=== PATIENT | male | born 1960 | race Caucasian/White ===

== ENCOUNTER 2016-09-05 12:24 | Emergency (ER) | payer BC, OTHER ==
[~2016-09-05] VITALS: Ht 193 cm; Wt 100.0 kg
[~2016-09-05 12:24] MED LIST: PHEN12.5 PR; PROM25TA5 PO
[2016-09-05 12:28] VITALS: PULSE 83; RESP 16; TEMP 98.3; O2SAT 96
--- NOTE | 2016-09-05 12:43 | PD ---
HPI . right shoulder pain Chief Complaint: Injury Time Seen by Provider: 12:39 Travel History International Travel<30 days: No Contact w/Intl Traveler<30days: No Traveled to known affect area: No History of Present Illness HPI 55-year-old male with no significant past medical history here with complaints of right shoulder pain for over 2 weeks. Patient sustained an injury on August 19, 2016 where he was lifting some beer kegs and hurt his right shoulder. He reported the incident to his job, but did not seek medical attention. He says for the past several weeks he has been trying to rest the area and gradually increase movement, but continues to experience pain in this extremity. He has some difficulty using his shoulder with limited range of motion secondary pain. He denies any dislocation. PFSH Past Medical History Hx Anticoagulant Therapy: No Diabetes: No Past Surgical History Abdominal Surgery: Yes (HERNIA) Social History Alcohol Use: Yes (SOCIAL) Tobacco Use: No Substance Use: No Allergies-Medications (Allergen,Severity, Reaction): Coded Allergies: No Known Allergies (Unverified , 09/05/16) Reported Meds & Prescriptions Reported Meds & Active Scripts Active Ibuprofen 800 Mg Tab 800 Mg PO TID Robaxin (Methocarbamol) 500 Mg Tab 500 Mg PO TID Review of Systems General / Constitutional: No: Fever Eyes: No: Visual changes HENT: No: Headaches Cardiovascular: No: Chest Pain or Discomfort Respiratory: No: Shortness of Breath Gastrointestinal: No: Abdominal Pain Genitourinary: No: Dysuria Musculoskeletal: Positive: Pain (right shoulder pain) Skin: No Rash Neurologic: No: Weakness Psychiatric: No: Depression Endocrine: No: Polydipsia Hematologic/Lymphatic: No: Easy Bruising Physical Exam Narrative GENERAL: AAO x 3, no acute distress, Well-nourished, well-developed patient. SKIN: Warm and dry. No visible rashes or bruising. HEAD: Normocephalic and atraumatic. EYES: No scleral icterus. No injection or drainage. ENT: No nasal drainage noted. Mucous membranes pink. Airway patent. NECK: Supple, trachea midline. No JVD. CARDIOVASCULAR: Regular rate and rhythm without murmurs, gallops, or rubs. RESPIRATORY: Breath sounds equal bilaterally. No accessory muscle use. No rhonchi or rales. GASTROINTESTINAL: Abdomen soft, non-tender, nondistended. EXTREMITIES: No cyanosis or edema. Limited range of motion on the right shoulder. Pain with internal and external rotation. turner and former automatic strength is normal b/ l BACK: Nontender without obvious deformity. No CVA tenderness. PSYCH: AAO x 3, normal affect. Data Data Last Documented VS Vital Signs Date Time Temp Pulse Resp B/P Pulse Ox O2 Delivery O2 Flow Rate FiO2 09/05/16 12:28 98.3 83 16 96 MDM Medical Decision Making Medical Screen Exam Complete: Yes Emergency Medical Condition: Yes Medical Record Reviewed: Yes Differential Diagnosis muscle strain, rotator cuff injury, less likely shoulder dislocation, less likely shoulder fracture Narrative Course 55-year-old male with no significant past medical history here with complaints of right shoulder pain for over 2 weeks. Patient sustained an injury on August 19, 2016 where he was lifting some beer kegs and hurt his right shoulder. He reported the incident to his job, but did not seek medical attention. He says for the past several weeks he has been trying to rest the area and gradually increase movement, but continues to experience pain in this extremity. He has some difficulty using his shoulder with limited range of motion secondary pain. He denies any dislocation. Patient seen and examined. He does have some pain with internal/external rotation of the right shoulder. I believe he may have a slight rotator cuff injury. The patient that x-ray does not show these type of injuries. Since these have been going on for over 2 weeks, I will go ahead and treat with a course of muscle relaxers and NSAIDs. He will benefit from orthopedic evaluation and possible MRI imaging. Patient verbalized understanding of instructions, questions were answered, and thanked me for their care. I advised them if their condition worsens, please return to the nearest emergency room for further care. Diagnosis Primary Impression: Muscle strain Referrals: Orthopaedic Surgeon Patient Instructions: General Instructions Additional Instructions: Please return to emergency department if your symptoms return or worsen. Follow up with your primary care provider. Take medications as prescribed. I suspect she may have a rotator cuff injury. You will need to follow-up with orthopedics for this. Your workers comp may be able to arrange this for you. Med/Other Pt SpecificInfo: Prescription(s) given Scripts Ibuprofen 800 Mg [id number] Mg PO TID #21 TAB Prov:Leelee Torres MD 09/05/16 Methocarbamol (Robaxin)500 Mg Wam195 Mg PO TID #21 TAB Ref 0 Prov:Leelee Torres MD 09/05/16 Disposition: 01 DISCHARGE HOME Condition: Stable Naomi Simmons Sep 05, 2016 12:43
[2016-09-05] MEDS ORDERED: IBUP800T23 PO (12:44)
[2016-09-05] MEDS ORDERED: ROBA500T PO (12:44)
== END 2016-09-05 13:07 | disposition home or self-care (01) ==
LOC: PHED 12:24
DX: S46.911A Strain of unspecified muscle, fascia and tendon at shoulder and upper arm level, right arm, initial encounter (principal); X50.0XXA Overexertion from strenuous movement or load, initial encounter; Y93.89 Activity, other specified; Y92.69 Other specified industrial and construction area as the place of occurrence of the external cause; Y99.0 Civilian activity done for income or pay
CPT/HCPCS: 99283